=== PATIENT | male | born 1975 | race Two or more races ===

== ENCOUNTER 2024-09-12 12:54 | Emergency (ER) | payer SELFPAY ==
--- NOTE | ~2024-09-12 | XR_ITS ---
EXAMINATION: XR ABDOMEN KUB CLINICAL INDICATION: Pain, question constipation COMPARISON: None available. TECHNIQUE: AP view of the abdomen. FINDINGS: The bowel gas pattern is normal with no evidence of ileus or obstruction. Moderate stool burden throughout the colon. The bones are unremarkable. XR/XR KUB IMPRESSION: Moderate stool burden throughout the colon. Electronically signed by: Gus Casillas MD 09/12/2024 09:22 PM EDT RP
[2024-09-12 12:57] VITALS: BP 105/57; PULSE 83; RESP 20; TEMP 37.1; O2SAT 98; BMI 27.5
--- NOTE | 2024-09-12 12:59 | ED.ABDPAIN ---
HPI - Abdominal Pain General Chief Complaint: Abdominal Pain Stated Complaint: stomach ache 1xweek Time Seen by Provider: 09/12/24 19:26 Source: patient, RN notes reviewed and old records reviewed Mode of arrival: ambulatory Limitations: no limitations History of Present Illness ED Provider: Mark HPI narrative: 49-year-old male who denies any past medical history presents for evaluation abdominal pain. Patient endorses left lower abdominal pain which started about 1 week ago. He denies any fevers, chills, nausea vomiting, diarrhea. He reports his last bowel movement was this morning He denies any black or bloody stool The patient denies any history abdominal surgeries. He is not taking any medication help alleviate his symptoms Denies any urinary complaints Related Data Previous Rx's ?Medication ?Instructions ?Recorded magnesium citrate 300 ml PO DAILY #296 mL 09/12/24 polyethylene glycol 3350 17 17 g PO DAILY PRN constipation 09/12/24 gram/dose oral powder (Miralax) #238 grams Allergies Allergy/AdvReac Type Severity Reaction Status Date / Time No Known Allergies Allergy Verified 09/12/24 13:00 Review of Systems Constitutional: Denies body ache(s), Denies chills and Denies fever(s) Cardiovascular: Denies chest pain Gastrointestinal: Reports abdominal pain, Denies hematochezia, Reports constipation, Denies nausea and Denies vomiting Musculoskeletal: Denies back pain Skin/Breast: Denies rash PMFSH Past Medical History Medical History (Updated 09/12/24 @ 20:45 by Constantin Flores) Kidney stones Social History Social History Smoked in Last 30 Days: Yes Use of substances other than those prescribed or required for medical reasons: No Advance Directives: No Advance Directives Information Provided: No Do you have a plan to hurt others: No Plan Physical Exam ED Vital Signs: Vital Signs - 24 hr 09/12/24 12:57 09/12/24 19:06 Temperature 98.8 F 98.7 F Pulse Rate 83 57 Respiratory Rate 20 16 Blood Pressure 105/57 L 95/61 Pulse Oximetry 98 100 Oxygen Delivery Method Room Air BMI result Body Mass Index 27.5 Const General: healthy appearing, comfortable, no acute distress, alert and awake Nutritional Appearance: well nourished Orientation/consciousness: patient oriented x3 HENMT Head: Yes normocephalic and Yes atraumatic Eyes Eyelids: Yes eyelids normal Conjunctivae: conjunctivae normal Sclerae: sclerae normal Corneas: corneas normal Pupils: Equal, round and reactive pupils present EOM: EOMs intact bilaterally Neck Neck: Yes full ROM Resp Effort & Inspection: normal respiratory effort, able to speak in complete sentences and not labored Cardio Rate: regular rate Rhythm: regular rhythm GI Inspection: No distended Palpation (GI): Soft to palpation, not firm, Tenderness to palpation present (GI) in the LLQ; not in the RLQ, not in the LUQ, not in the RUQ, obturator sign negative and psoas sign negative, no guarding and not rigid Skin General skin exam: elasticity normal Neuro General: patient oriented x3 Cranial nerves: Yes Equal, round and reactive pupils present and Yes Bilaterally intact EOM present Cognition (Neuro): normal cognition Extrem Other: Moving all extremities well without any obvious deformities Course Course Course Narrative: This is an RME: Additional HPI, ROS, PE not included below will be deferred to primary provider. RME assessment and note performed by: Jayleen Valero PA-C This is a [id number]-male who presents to the ER with a complaint of abdominal pain x 1 week. Reporting no bloody or black stool. No hx of similar symptoms. Hx of gallstones. Abd is soft, with mild ttp overlying the left lower quadrant. Plan: Labs, UA, further ER eval needed Medical Decision Making Medical Decision Making MDM Narrative: 41-year-old male presents for evaluation abdominal pain x1 week. He has no fever, no nausea vomiting. He endorses fever bowel movements but did have a bowel movement this morning. His abdomen is soft, minimally tender to palpation, no rebound or guarding. He has no fever, no leukocytosis, I have a low suspicion for infectious process. The patient has no bloody stool to suggest diverticulitis, colitis. His KUB shows moderate constipation/stool burden. We will discharge the patient is symptomatic care for constipation. Differential Diagnosis Differential Diagnoses: The differential diagnosis associated with the presentation includes Abdominal pain Constipation Bowel obstruction less likely Colitis Diverticulitis Lab Data MDM Lab Attestation statement: I reviewed the patient's lab results. No leukocytosis, no anemia. Normal platelet count. No significant electrolyte abnormalities. Patient has a slight elevation of BUN and creatinine to 18 and 1.42 respectively. This may be reflective of some degree of dehydration with the patient is able to tolerate oral intake. This ratio was not consistent with upper GI bleed 09/12/24 14:28 09/12/24 14:28 Labs: Lab Results 09/12/24 09/12/24 Range/Units 14:28 19:19 WBC 10.0 (4.8-10.8) X10*3/uL RBC 4.70 (4.60-5.80) X10*6/uL Hgb 15.1 (14.0-18.0) g/dl Hct 42.8 (42.0-52.0) % MCV 91.1 (80.0-98.0) fL MCH 32.1 (27.0-33.0) pg MCHC 35.3 (31.0-36.0) g/dl RDW 12.6 (11.0-16.0) % Plt Count 271 (160-400) X10*3/uL MPV 8.9 L (9.4-12.4) fL Immature Gran % (Auto) 0.3 (0.0-0.4) % Neut % (Auto) 67.7 (45-73) % Lymph % (Auto) 22.4 (20-40) % [place] % (Auto) 7.6 (2-11) % Eos % (Auto) 1.6 (0-4) % Baso % (Auto) 0.4 (0-2) % Lymph # (Auto) 2.3 (1.2-4.9) X10*3/uL [place] # (Auto) 0.8 (0.1-1.2) X10*3/uL Eos # (Auto) 0.2 (0.0-0.4) X10*3/uL Baso # (Auto) 0.0 (0.0-0.2) X10*3/uL Abs Immat Gran (auto) 0.03 (0.00-0.03) X10*3/uL Absolute Neuts (auto) 6.8 (2.0-8.3) x10*3/uL Absolute Nucleated RBC 0.000 (0.0-0.012) X10*3/uL Nucleated RBC % (auto) 0.0 (0.0-0.2) /100WBC Sodium 139 (135-145) mmol/L Potassium 4.0 (3.3-5.1) mmol/L Chloride 107 (96-108) mmol/L Carbon Dioxide 25 (22-29) mmol/L Anion Gap 11 L (12-20) BUN 18 H (9-16) mg/dL Creatinine 1.42 H (0.5-1.4) mg/dL Estim Creat Clear Calc 60.1 Estimated GFR 53 Random Glucose 99 (60-115) mg/dL Calcium 9.3 (8.4-10.2) mg/dL Total Bilirubin 0.2 (0.0-1.0) mg/dL AST 16 (5-37) U/L ALT 17 (0-40) U/L Alkaline Phosphatase 58 (39-117) U/L Total Protein 6.9 (6.5-8.0) g/dL Albumin 4.0 (3.5-5.0) g/dL Lipase 35 (8-78) U/L Urine Color Yellow Urine Appearance Clear Urine pH 6.0 (5.0-9.0) Ur Specific [place] 1.020 (1.005-1.025) Urine Protein Negative (Neg-Trace) mg/dL Urine Glucose (UA) Negative (Negative) mg/dL Urine Ketones Negative (Negative) mg/dL Urine Blood Negative (Negative) Urine Nitrite Negative (Negative) Ur Leukocyte Esterase Negative (Negative) Independent Interpretation I performed an independent interpretation of an: Plain X-Ray (Moderate stool burden, nonobstructive bowel gas pattern) Discharge Plan Discharge Clinical Impression: Abdominal pain, Acute constipation Patient Disposition: Home, Self-Care Instructions: Constipation (ED), High Fiber Diet (ED) Additional Instructions: Your x-ray shows a significant amount of constipation. You should increase fluid intake in your diet. Increase fiber intake in your diet. Take MiraLax every night for the next 2 weeks. Take magnesium citrate, drink the entire bottle tomorrow to help facilitate bowel movements This should help with your abdominal pain. Follow-up with your primary doctor, return for new or worsening symptoms Prescriptions: New polyethylene glycol 3350 [Miralax] 17 gram/dose powder 17 g PO DAILY PRN (Reason: constipation) Qty: 238 0RF magnesium citrate Solution 300 ml PO DAILY Qty: 296 0RF Print Language: Filipino
[2024-09-12 14:32] LABS: Basophils Percent Auto 0.4 % (0-2); Eosinophils Absolute Auto 0.2 X10*3/uL (0.0-0.4); Eosinophils Percent Auto 1.6 % (0-4); Hematocrit 42.8 % (42.0-52.0); Hemoglobin 15.1 g/dl (14.0-18.0); Imm Gran Abs Auto 0.03 X10*3/uL (0.00-0.03); Imm Gran Pct Auto 0.3 % (0.0-0.4); Lymphocytes Absolute Auto 2.3 X10*3/uL (1.2-4.9); Lymphocytes Percent Auto 22.4 % (20-40); MANUAL DIFF FLAG NO; Mean Corpuscular HGB Conc 35.3 g/dl (31.0-36.0); Mean Corpuscular Hemoglobin 32.1 pg (27.0-33.0); Mean Corpuscular Volume 91.1 fL (80.0-98.0); Mean Platelet Volume 8.9 fL (9.4-12.4); Monocytes Absolute Auto 0.8 X10*3/uL (0.1-1.2); Monocytes Percent Auto 7.6 % (2-11); Neutrophils Absolute Auto 6.8 x10*3/uL (2.0-8.3); Neutrophils Percent Auto 67.7 % (45-73); Platelet Count 271 X10*3/uL (160-400); Red Cell Distribution Width 12.6 % (11.0-16.0)
[2024-09-12 14:50] LABS: Alanine Aminotransferase 17 U/L (0-40); Alkaline Phosphatase 58 U/L (39-117); Anion Gap 11 (12-20); Aspartate Amino Transferase 16 U/L (5-37); Bilirubin Total 0.2 mg/dL (0.0-1.0); Blood Urea Nitrogen 18 mg/dL (9-16); Calcium 9.3 mg/dL (8.4-10.2); Carbon Dioxide 25 mmol/L (22-29); Chloride 107 mmol/L (96-108); Creatinine Clr Calc Pharmacy 60.1; Estimated Glomerular Filt Rate 53; Glucose Random 99 mg/dL (60-115); Lipase 35 U/L (8-78); Sodium 139 mmol/L (135-145); Total Protein 6.9 g/dL (6.5-8.0)
[2024-09-12 19:06] VITALS: BP 95/61; PULSE 57; RESP 16; TEMP 37.1; O2SAT 100
--- NOTE | 2024-09-12 19:19 | PC.NURSE ---
patient a&ox3, vitals stable, pt has RLQ abd pain- 8/10, pt awaiting provider, urine obtained/labs previously obtained, call branham within reach, will continue to monitor.
[2024-09-12 19:27] LABS: Appearance Urine Clear; Color Urine Yellow; Glucose Urine UA Negative (Negative); Leukocyte Esterase Urine Negative (Negative); Nitrite Urine Negative (Negative); Urine Blood Negative (Negative); Urine Ketones Negative (Negative); Urine Protein Negative (Neg-Trace)
[2024-09-12 20:58] VITALS: BP 103/58; PULSE 72; RESP 16; TEMP 36.8; O2SAT 99
== END 2024-09-12 20:59 | disposition home or self-care (01) ==
PROVIDERS: Physician Assistant Medical; Emergency Provider Student in an Organized Health Care Education/Training Program
DX: K59.00 Constipation, unspecified (principal); R10.32 Left lower quadrant pain; Z79.899 Other long term (current) drug therapy
CPT/HCPCS: 36415; 74018; 80053; 81003; 83690; 85025; 99283; 99284

== ENCOUNTER 2025-04-10 14:24 | Outpatient (REF) | payer OTHER, SELFPAY ==
--- OUTSIDE RECORDS SUMMARY | 2025-04-10 14:36 | XMS_ITS | Encounter Summary ---
Author Organization [employer] Address [address] [place] [address] Care Team Providers Care Manager Insurance Name Role Phone Sylvia Bains MD Primary Care Provider [phone] Reason for Visit * Reason Comments Abdominal Pain Vomiting Encounter Details Date Type Department Care Team ([facility] Contact Info) Description 04/10/2025 2:40 PM EDT Office Visit [facility] [address] [place] [address] Epigastric pain (Primary Dx); Viral URI Social History Tobacco Use Types Packs/Day Years Used Date Smoking Tobacco: Every Day Cigarettes 0.5 30 Smokeless Tobacco: Never Comments:1/2 a day x 33 year s Alcohol Use Standard Drinks/Week Comments Yes 0 (1 standard drink = 0.6 oz pur e alcohol) socially Alcohol Answer Date Recorded Q1: How often do you have a drink containing alc ohol? 2 10/10/2024 Q2: How many drinks containi ng alcohol do you have on a typical day when you are drinking? 1 10/10/2024 Q3: How often do you have six or more drinks on one occasion? 1 10/10/2024 Sex and Gender Information Value Date Recorded Sex Assigned at Male 12/22/2022 11:20 AM EST Legal Sex Male 11:47 AM EST Gender Identity Male 12/22/2022 11:20 AM EST Sexual Orientation Straight 12/22/2022 11 :20 AM EST documented as of this encounter Last Filed Vital Signs Vital Sign Reading Time Taken Comments Blood Pressure 105/63 04/10/2025 1:34 PM EDT Pulse 71 04/10/2025 1:34 PM EDT Temperature 37.1 ??C (98.8 ??F) 04/10/2025 1:34 PM ED T Respiratory Rate 17 04/10/2025 1:34 PM EDT Oxygen Saturation 98% 04/10/2025 1:34 PM EDT Inhaled Oxygen Concentration - - Weight 57.4 kg (126 lb 9.6 oz) 04/10/2025 1:34 P M EDT Height - - Body Mass Index - - documented in this encounter Plan of Treatment Upcoming Encounters Date Type Department Care Team (Late st Contact Info) Description 06/16/2025 3:15 PM EDT Office Visit [facility] MEDICINE [address] [place] [address] Sylvia Bains MD [address] [place], [place] [phone] Scheduled Orders Name Type Priority Associated Diagnoses Orde r Schedule Lipase Lab Routine Epigastric pain Expected: 04/10/2025, Expires: 04/10/2026 Comprehensive Metabolic Panel Lab Routine Epigastric pain Expected: 04/10/2025 (Approximate), Expires: 04/10/2026 Helicobacter pylori??Antigen, EIA, Stool Lab Routine Epigastric pain Expected: 04/10/2025, Expires: 04/10/2026 HIV-1/2 Antigen and Antibodies, Fourth Generation, with Reflexes Lab Routine Epigastric pain Expected: 04/10/2025 (Approximate), Expires: 04/10/2026 Hepatitis C Antibody with Reflex to HCV, RNA, Quantitative, Real-Time PCR Lab Routine Epigastric pain Expected: 04/10/2025, Expires: 04/10/2026 Lipid Panel, Standard Lab Routine Epigastric pain Expected: 04/10/2025 (Approximate), Expires: 04/10/2026 documented as of this encounter Procedures Procedure Name Priority Date/Time Associated Diagnosis Comments POCT INFLUENZA B (ID NOW RAPID MOLECULAR) Routine 04/10/2025 1:52 PM EDT Viral URI POCT INFLUENZA A (ID NOW RAPID MOLECULAR) Routine 04/10/2025 1:52 PM EDT Viral URI POCT RAPID COVID ANTIGEN Routine 04/10/2025 1:52 PM EDT Viral URI documented in this encounter Results * Influenza B (ID NOW Rapid Molecular) (04/10/2025 1:52 PM EDT) [facility] Influenza B Negative Negative, Indeterminate [facility] Swab 04/10/2025 1:52 PM EDT Sylvia Bains MD POINT OF CARE TEST ENTER/EDIT ORDERABLES Final Result Performing Organization Address City/[facility]/ZIP Co de Phone Number [facility] [address] [place] [address] [phone] * Influenza A (ID NOW Rapid Molecular) (04/10/2025 1:52 PM EDT) [facility] Influenza A Negative Negative, Indeterminate [facility] Swab 04/10/2025 1:52 PM EDT Sylvia Bains MD POINT OF CARE TEST ENTER/EDIT ORDERABLES Final Result Performing Organization Address [facility] Co de Phone Number [facility] [address] [place] [phone] * POCT Rapid COVID Ag (04/10/2025 1:52 PM EDT) [facility] Rapid COVID Ag Negative [facility] Swab 04/10/2025 1:52 PM EDT Sylvia Bains MD POINT OF CARE TEST ENTER/EDIT ORDERABLES Final Result Performing Organization Address [facility] Co de Phone Number [facility] [address] [place] [address] [phone] documented in this encounter Visit Diagnoses Diagnosis Epigastric pain- Primary Abdominal pain, epigastric Viral URI Acute upper respiratory infections of unspecified site documented in this encounter Care Teams Manager Insurance Relationship Specialty Start Date End Date Sylvia Bains MD [address] [place] [phone] PCP - General Family Medicine 04/10/25 documented as of this encounter
--- OUTSIDE RECORDS SUMMARY | 2025-04-10 14:36 | XMS_ITS | Clinical Summary ---
Author Organization [employer] Address [address] [facility] 7[address] [place] [address] Care Team Providers Care Dependency Program Director Name Role Phone Sylvia Bains MD Primary Care Provider [phone] Allergies No known active allergies Medications Omeprazole 20 MG tablet delayed-relea seIndications :Epigastric pain Take 1 tablet (20 mg) by mouth 2 times daily. 90 tablet 1 10/10/20 24 Active [facility] Magnesium Citrate oral solution TAKE 300 ML ORALLY DAILY 09/13/20 24 Active GaviLAX 17 GM/SCOOP powder Take 17 g by mouth in the morning and 17 g at noon. 510 g 1 04/10/20 25 Active ondansetron (Zofran) 4 MG tablet Take 1 tablet (4 mg) by mouth every 8 (eight) hours if needed for nausea or vomiting for up to 7 days. 21 tablet 04/10/20 25 025 Active GaviLAX 17 GM/SCOOP powder DISSOLVE 17 G WITH LIQUID THEN TAKE ORALLY DAILY NEEDED FOR CONSTIPATION 09/13/20 24 025 Discontinued(R eorder (will not trigger notification to Pharmacy)) Active Problems No known active problems Encounters Date Type Department Care Team Description 04/10/2025 2:40 PM EDT Office Visit [facility] [address] [place] [address] Epigastric pain (Primary Dx); Viral URI 01/24/2025 Telephone [facility] [address] [place] [address] Max Sal MD from Last 3 Months Immunizations Name Administration Dates Next Due HepB-CpG 03/02/2023 MMR 03/02/2023 Pfizer Covid-19 Vaccine 12+ Bivalent 12/05/2022 Pneumococcal Polysaccharide PPSV23 02/16/2023 Tdap 03/16/2023,02/16/2023 Family History Medical History Relation Name Comments Stroke Father Stroke Paternal Grandfather Relation Name Status Comments Father Paternal Grandfather Social History Tobacco Use Types Packs/Day Years [...] Orientation Straight 12/22/2022 11 :20 AM EST Last Filed Vital Signs Vital Sign Reading [...] - - Body Mass Index - - Plan of Treatment Upcoming Encounters Date Type Department Care Team (Late st Contact Info) Description 04/10/2025 2:40 PM EDT Office Visit [facility] [address] [place] [phone] Epigastric pain (Primary Dx); Viral URI 06/16/2025 3:15 PM EDT Office Visit [facility] [address] [place] [address] Sylvia Bains MD [address] [place] [address] Health Maintenance Due Date Last Done Comments CT Colonography 1976 Colonoscopy 1976 Colorectal Cancer Screening 1976 Dental Oral Exam 1976 Dental Prophylaxis 1976 Dental X-Ray: Bitewings 1976 Dental X-Ray: Full Mouth 1976 Depression Screening 1976 FIT DNA/Cologuard 1976 FIT 1976 FOBT 1976 HIV Screening 1976 Lipid Panel 1976 SDOH Screening 1976 Sigmoidoscopy 1976 Family Planning (PISQ) 1991 Hepatitis C Screening 1994 Hepatitis B Vaccines (2 of 2 - CpG 2-dose series) 03/30/2023 03/02/2023 Pneumococcal Vaccine: Pediatrics (0 to 5 Years) and At-Risk Patients (6 to 49) Years) (2 of 2 - PCV) 02/17/2024 02/16/2023 COVID-19 Vaccine (2 - 2023-2 5 season) 2024 12/05/2022 Influenza Vaccine (#1) 2024 Alcohol/Substance Use Screening 10/10/2025 10/10/2024 Tobacco Screening 04/10/2026 04/10/2025 Zoster Vaccines (1 of 2) 2026 DTaP/Tdap/Td Vaccines (3 - T d or Tdap) 03/16/2033 03/16/2023, 02/16/2023 RSV Patients and Patients Aged 60 years or older (1 - 1-dose 75+ series) 2051 HIB Vaccines Aged Out No longer eligi ble based on patient's age to complete this topic HPV Vaccines Aged Out No longer eligi ble based on patient's age to complete this topic Hepatitis A Vaccines Aged Out No long er eligible based on patient's age to complete this topic IPV Vaccines Aged Out No longer eligi ble based on patient's age to complete this topic Meningococcal Vaccine Aged Out No oylanda nilesh eligible based on patient's age to complete this topic RSV under 20 months Aged Out No longe r eligible based on patient's age to complete this topic Rotavirus Vaccines Aged Out No longer eligible based on patient's age to complete this topic Procedures Procedure Name Priority Date/Time Associated Diagnosis Comments POCT INFLUENZA B (ID NOW RAPID MOLECULAR) Routine 04/10/2025 1:52 PM EDT Viral URI POCT INFLUENZA A (ID NOW RAPID MOLECULAR) Routine 04/10/2025 1:52 PM EDT Viral URI POCT RAPID COVID ANTIGEN Routine 04/10/2025 1:52 PM EDT Viral URI from Last 3 Months Results * Influenza B (ID NOW Rapid Molecular) (04/10/2025 1:52 PM EDT) Influenza B Negative Negative, Indeterminate [facility] Swab 04/10/2025 1:52 PM EDT Sylvia Bains MD POINT OF CARE TEST ENTER/EDIT ORDERABLES Final Result Performing Organization Address [facility] Co de Phone Number [facility] [address] [place] [phone] * Influenza A (ID NOW Rapid Molecular) (04/10/2025 1:52 PM EDT) Influenza A Negative Negative, Indeterminate [facility] Swab 04/10/2025 1:52 PM EDT Sylvia Banis MD POINT OF CARE TEST ENTER/EDIT ORDERABLES Final Result Performing Organization Address [facility] Co de Phone Number [facility] [address] [place] [phone] * POCT Rapid COVID Ag (04/10/2025 1:52 PM EDT) Rapid COVID Ag Negative [facility] Swab 04/10/2025 1:52 PM EDT Sylvia Bains MD POINT OF CARE TEST ENTER/EDIT ORDERABLES Final Result [facility] [address] [place] [address] [phone] from Last 3 Months Insurance [place] - [place] FULL (MEDICAID) Care Teams Dependency Program Director Relationship Specialty Start Date End Date Sylvia Bains MD [address] [place] [phone] PCP - General Family Medicine 04/10/25
--- OUTSIDE RECORDS SUMMARY | 2025-04-10 14:36 | XMS_ITS | Encounter Summary ---
Author Organization [employer] Address [address] [place] [address] Care Team Providers Care Dupligraph Operator Name Role Phone Sylvia Bains MD Primary Care Provider [phone] Encounter Details Date Type Department Care Team ([facility] Contact Info) Description 01/30/2023 Abstract [facility] AD[facility] [address] [place] [address] Gerhard Bell DDS [address] [place] [address] Social History Tobacco Use Types Packs/Day Years Used Date Smoking Tobacco: Every Day Cigarettes 0.5 30 Smokeless Tobacco: Never Alcohol Use Standard Drinks/Week Comments Yes 0 (1 standard drink = 0.6 oz pur e alcohol) socially Sex and Gender Information Value Date Recorded Sex Assigned at Male 12/22/2022 11:20 AM EST Legal Sex Male 11:47 AM EST Gender Identity Male 12/22/2022 11:20 AM EST Sexual Orientation Straight 12/22/2022 11 :20 AM EST COVID-19 Exposure Response Date Recorded In the last 10 days, have yo u been in contact with someone who was confirmed or suspected to have Coronavirus/COVID-19? No / Unsure 01/26/2023 9:30 AM EST documented as of this encounter Plan of Treatment Upcoming Encounters Date Type Department Care Team ([facility] Contact Info) Description 04/10/2025 2:40 PM EDT Office Visit [facility] [address] [place], [place] [phone] Epigastric pain (Primary Dx); Viral URI 06/16/2025 3:15 PM EDT Office Visit [facility] MEDICINE [address] [place] [address] Sylvia Bains MD [address] [place], [place] [phone] documented as of this encounter Visit Diagnoses Not on filedocumented in this encounter Care Teams Dupligraph Operator Relationship Specialty Start Date End Date Sylvia Bains MD [address] [place], [place] [phone] PCP - General Family Medicine 04/10/25 documented as of this encounter
--- OUTSIDE RECORDS SUMMARY | 2025-04-10 14:36 | XMS_ITS | Encounter Summary ---
Author Organization [employer] Address [address] [place] [address] Care Team Providers Care Cat Wagon Operator Name Role Phone Sylvia Bains MD Primary Care Provider [phone] Encounter Details Date Type Department Care Team (Late Contact Info) Description 10/10/2024 Orders Only [facility] MED & PEDS [address] [place], [place] [phone] Magen Disla MD [address] [place] [address] Epigastric pain Social History Tobacco Use Types Packs/Day Years [...] Encounters Date Type Department Care Team (Late Contact Info) Description 04/10/2025 2:40 PM EDT Office Visit [facility] [address] [place] [address] Epigastric pain (Primary Dx); Viral URI 06/16/2025 3:15 PM EDT Office Visit [facility] MEDICINE [address] [place], [place] [phone] Sylvia Bains MD [address] [place] [phone] documented as of this encounter Visit Diagnoses Diagnosis Epigastric pain Abdominal pain, epigastric Epigastric pain- Primary Abdominal pain, epigastric Viral URI Acute upper respiratory infections of unspecified site documented in this encounter Care Teams Cat Wagon Operator Relationship Specialty Start Date End Date Sylvia Bains MD [address] [place] [phone] PCP - General Family Medicine 04/10/25 documented as of this encounter
[2025-04-10 16:44] LABS: Alanine Aminotransferase 46 U/L (0-40); Albumin Level 4.3 g/dL (3.5-5.0); Anion Gap 11 (12-20); Aspartate Amino Transferase 23 U/L (5-37); Bilirubin Total 0.3 mg/dL (0.0-1.0); Blood Urea Nitrogen 17 mg/dL (9-16); Calcium 9.2 mg/dL (8.4-10.2); Carbon Dioxide 29 mmol/L (22-29); Chloride 103 mmol/L (96-108); Cholesterol 154 mg/dL (<200); Estimated Glomerular Filt Rate > 60; Glucose Random 100 mg/dL (60-115); HDL Cholesterol 61 mg/dL (>40); LDL Cholesterol Calculated 73 mg/dL (<100); Lipase 38 U/L (8-78); Sodium 139 mmol/L (135-145); Total Protein 7.1 g/dL (6.5-8.0); Triglycerides 103 mg/dL (<150)
[2025-04-10 16:48] LABS: Alkaline Phosphatase 58 U/L (39-117)
[2025-04-11 07:51] LABS: HIV AB/AG Nonreactive (Nonreactive); HIV Num 1 0.07 S/CO (0.00-0.99); ~HepC Num1 0.15 S/CO (0.00-0.79); ~Hepatitis C Antibody Nonreactive (Nonreactive)
== END 2025-04-10 14:25 | disposition home or self-care (01) ==
LOC: HO.HHCL 14:24
PROVIDERS: Visit Provider General Practice
DX: R10.13 Epigastric pain (principal); Z13.6 Encounter for screening for cardiovascular disorders
CPT/HCPCS: 36415; 80053; 80061; 83690; 86803; 87389

== ENCOUNTER 2025-06-16 15:40 | Outpatient (REF) | payer OTHER, SELFPAY ==
[2025-06-16 17:25] LABS: MANUAL DIFF FLAG NO
[2025-06-16 17:31] LABS: Hematocrit 41.4 % (42.0-52.0); Hemoglobin 14.4 g/dl (14.0-18.0); Imm Gran Abs Auto 0.02 X10*3/uL (0.00-0.03); Imm Gran Pct Auto 0.3 % (0.0-0.4); Lymphocytes Absolute Auto 2.1 X10*3/uL (1.2-4.9); Mean Corpuscular HGB Conc 34.8 g/dl (31.0-36.0); Mean Corpuscular Hemoglobin 30.8 pg (27.0-33.0); Mean Corpuscular Volume 88.7 fL (80.0-98.0); NRBC Abs Auto 0.000 X10*3/uL (0.0-0.012); NRBC Pct Auto 0.0 /100WBC (0.0-0.2); Platelet Count 230 X10*3/uL (160-400); Red Blood Count 4.67 X10*6/uL (4.60-5.80); White Blood Count 7.4 X10*3/uL (4.8-10.8)
[2025-06-16 17:36] LABS: Hemoglobin A1C 137.3422 umol/L; Total Hemoglobin (HGBA1C) 3720.0804 umol/L
== END 2025-06-16 15:41 | disposition home or self-care (01) ==
LOC: HO.HHCL 15:40
PROVIDERS: PCP General Practice; Visit Provider General Practice
DX: R10.13 Epigastric pain (principal)
CPT/HCPCS: 36415; 83036; 85025

== ENCOUNTER 2025-08-07 09:44 | Outpatient (REF) | payer OTHER, SELFPAY ==
--- OUTSIDE RECORDS SUMMARY | 2025-08-07 11:11 | XMS_ITS | Clinical Summary ---
Author Organization [employer] Address [address] [facility] 7t [place] [address] Care Team Providers Care Compounding Pharmacy Technician Name Role Phone Sylvia Bains MD Primary Care Provider [phone] Allergies No known active allergies Medications [facility] Magnesium Citrate oral solution TAKE 300 ML ORALLY DAILY 4 Active famotidine (Pepcid) 40 MG tabletIndicatio ns:Epigastric pain Take 1 tablet (40 mg) by mouth 2 times daily. 60 tablet 11 5 04/17/20 26 Active polyethylene glycol, PEG, 3350 (Glycolax) 17 GM/SCOOP powder TAKE 17 GRAMS IN 8 OUNCES OF WATER AND TAKE TWICE DAILY IN THE MORNING AND AT NOON 510 g 5 Active nicotine (Nicoderm, Step 3) 7 MG/24HR patch APPLY 1 PATCH TOPICALLY TO THE SKIN IN THE MORNING *DO NOT SMOKE WHILE USING PATCH* 30 patch 1 5 Active Omeprazole 20 MG tablet delayed-release Take 1 tablet by mouth 2 times daily. 5 Active ondansetron (Zofran) 4 MG tablet TAKE 1 TABLET BY MOUTH EVERY 8 HOURS NEEDED FOR NAUSEA AND VOMITING FOR UP TO 7 DAYS 5 Active melatonin 5 MG tablet Take 1 tablet (5 mg) by mouth if needed at bedtime (insomnia). 90 tablet 1 5 Active clotrimazole (Lotrimin) 1 % cream Apply topically 2 times daily for 28 days. 30 g 5 5 07/14/20 25 Active Problems Problem Noted Date Diagnosed Date Tobacco use 06/18/2025 Onychomycosis 06/18/2025 Red eyes 06/18/2025 Open fracture of tooth with routine healing 05/31 Slow transit constipation 04/10/2025 Assessment & Plan (04/13/2025 6:35 AM EDT): Recommend Miralax cleanout x 2-4 weeks minimum. This is long-standing constipation and is unlikely to be relieved quickly He should call GI to make his appointment for colonscopy Increase fluid and fiber intake Epigastric pain 04/10/2025 Encounters Date Type Department Care Team Description 06/16/2025 3:15 PM EDT Office Visit [facility] [address] [place] [address] [phone] Sylvia Bains MD Epigastric pain (Primary Dx); Slow transit constipation; Tobacco use; Primary insomnia; Onychomycosis; Red eyes; Open fracture of tooth with routine healing 06/16/2025 Travel 06/15/[address] [facility] [address] [place] [address] [phone] Sylvia Bains MD Chart Prep 06/09/[address] [facility] [address] [place] [address] [phone] Sylvia Bains MD 06/09/[address] [facility] [address] [place] [address] [phone] Magen Disla MD Epigastric pain 05/25/[address] [facility] [address] [place] [address] [phone] Sylvia Bains MD 05/17/[address] [facility] [address] [place] [address] [phone] Sylvia Bains MD Letter for School/Work from Last 3 Months Immunizations Immunization Administration Dates Next Due HepB-CpG 03/02/2023 MMR 03/02/2023 Pfizer Covid-19 Vaccine 12+ Bivalent 12/05/2022 Pneumococcal Polysaccharide PPSV23 02/16/2023 Tdap 03/16/2023,02/16/2023 Family History Medical History Relation Name Comments Stroke Father Stroke Paternal Grandfather Relation Name Status Comments Father Paternal Grandfather Social History Tobacco Use Types Packs/Day Years Used Date Smoking Tobacco: Every Day Cigarettes 0.5 30 Smokeless Tobacco: Never Tobacco Cessation:Ready to Q uit: Not Asked; Counseling Given: Not Answered Comments:1/2 a day x 33 years Alcohol Use Standard Drinks/Week Comments Yes 0 [...] more drinks on one occasion? 1 10/10/2024 Depression Answer Date Recorded Patient Health Questionnaire-9 Score 0 06/16/2025 Patient Health Questionnaire-9 Score 0 06/16/2025 Last PHQ-9: Questionnaire Data Not on file 0 06/16/2025 Housing Stability Answer Date Recorded What is your housing situation today? I have stan allie 06/16/[address] you li ve. Do you have problems with any of the following? None of the above 06/16/2025 Food Insecurity Answer Date Recorded Within the past 12 months, y ou worried that your food would run out before you got money to buy more: Never True 06/16/2025 Within the past 12 months,th e food you bought just didn't last and you didn't have enough money to get more: Never True Transportation Answer Date Recorded In the past 12 months, has l ack of transportation kept you from medical appts, meetings, work or from getting things needed for daily living? No 06/16/2025 Utilities Answer Date Recorded In the past 12 months, has t he electric, gas, oil or water company threatened to shut off services in your home? No 06/16/2025 Depression Answer Date Recorded Patient Health Questionnaire-2 Score 0 06/16/2025 Internet Access Answer Date Recorded Internet Access Q1 Yes 06/16/2025 Internet Access Q2 Not on file 06/16/2025 Sex and Gender Information Value Date Recorded Sex Assigned at Male 12/22/2022 11:20 AM EST Legal Sex Male 11:47 AM EST Gender Identity Male 12/22/2022 11:20 AM EST Sexual Orientation Straight 12/22/2022 11 :20 AM EST Last Filed Vital Signs Vital Sign Reading Time Taken Comments Blood Pressure 102/80 06/16/2025 2:50 PM EDT Pulse 84 06/16/2025 2:50 PM EDT Temperature 37.2 C (98.9 F) 06/16/2025 2:50 PM EDT Respiratory Rate 18 06/16/2025 2:50 PM EDT Oxygen Saturation 98% 04/10/2025 1:34 PM EDT Inhaled Oxygen Concentration - - Weight 58.8 kg (129 lb 9.6 oz) 06/16/2025 2:50 P M EDT Height 165.1 cm (5' 5 ) 06/16/2025 2:50 PM EDT Body Mass Index 21.57 06/16/2025 2:50 PM EDT Plan of Treatment Health Maintenance Due Date Last Done Comments CT Colonography 1976 Colonoscopy 1976 Colorectal Cancer Screening 1976 Dental Oral Exam 1976 Dental Prophylaxis 1976 Dental X-Ray: Bitewings 1976 Dental X-Ray: Full Mouth 1976 FIT DNA/Cologuard 1976 FIT 1976 FOBT 1976 Sigmoidoscopy 1976 Family Planning (PISQ) 1991 Hepatitis B Vaccines (2 of 2 - CpG 2-dose series) 03/30/2023 03/02/2023 Pneumococcal Vaccine: Pediatrics (0 to 5 Years) and At-Risk Patients (6 to 49) Years (2 of 2 - PCV) 02/17/2024 02/16/2023 COVID-19 Vaccine (2 - 2024-2 6 season) 2025 12/05/2022 Influenza Vaccine (#1) 2025 Alcohol/Substance Use Screening 06/16/2026 06/16/2025 Depression Screening 06/16/2026 06/16/2025, 06/16/2025 Disability Screening 06/16/2026 06/16/2025 SDOH Screening 06/16/2026 06/16/2025 Tobacco Screening 06/16/2026 06/16/2025 Zoster Vaccines (1 of 2) 2026 Lipid Panel 04/10/2030 04/10/2025 DTaP/Tdap/Td Vaccines (3 - T d or Tdap) 03/16/2033 03/16/2023, 02/16/2023 RSV Patients and Patients Aged 60 years or older (1 - 1-dose 75+ series) 2051 HIV Screening Completed 04/10/2025 Hepatitis C Screening Completed 04/10/2025 HIB Vaccines Aged Out No longer eligi [...] patient's age to complete this topic Meningococcal B Vaccine Aged Out No l onger eligible based on patient's age to complete this topic Meningococcal Vaccine Aged Out No yolanda nilesh eligible based on patient's age to complete this topic RSV under 20 months Aged Out No longe r eligible based on patient's age to complete this topic Rotavirus Vaccines Aged Out No longer eligible based on patient's age to complete this topic Procedures Procedure Name Priority Date/Time Associated Diagnosis Comments CBC WITH AUTO DIFFERENTIAL Routine 06/16/2025 3:43 PM EDT Epigastric pain HEMOGLOBIN A1C Routine 06/16/2025 3:43 PM EDT Epigastric pain HEPATITIS C AB W/REFL TO HCV RNA, QN, PCR Routine 04/10/2025 2:27 PM EDT Epigastric pain HIV 1/2 ANTIGEN/ANTIBODY, FOURTH GENERATION W/RFL Routine 04/10/2025 2:27 PM EDT Epigastric pain LIPID PANEL, STANDARD Routine 04/10/2025 2:27 PM EDT Epigastric pain from Last 3 Months or Most Recently Relevant to Health Maintenance Results * (ABNORMAL) CBC auto differential (06/16/2025 3:43 PM EDT) White Blood Count 7.4 4.8 - 10.8 X10*3/uL [facility] Red Blood Count 4.67 4.60 - 5.80 X10*6/uL [facility] Hemoglobin 14.4 14.0 - 18.0 g/dl [facility] Hematocrit 41.4(L) 42.0 - 52.0 % [facility] Mean Corpuscular Volume 88.7 80.0 - 98.0 fL [facility] Mean Corpuscular Hemoglobin 30.8 27.0 - 33.0 pg [facility] Mean Corpuscular HGB Conc 34.8 31.0 - 36.0 g/dl [facility] Red Cell Distribution Width 12.7 11.0 - 16.0 % [facility] Platelet Count 230 160 - 400 X10*3/uL [facility] Mean Platelet Volume 9.9 9.4 - 12.4 fL [facility] Neutrophils Percent Auto 60.9 45 - 73 % [facility] Imm Gran Pct Auto 0.3 0.0 - 0.4 % [facility] Lymphocytes Percent Auto 28.8 20 - 40 % [facility] Monocytes Percent Auto 8.5 2 - 11 % [facility] Eosinophils Percent Auto 1.2 0 - 4 % [facility] Basophils Percent Auto 0.3 0 - 2 % [facility] NRBC Pct Auto 0.0 0.0 - 0.2 /100WBC [facility] Neutrophils Absolute Auto 4.5 2.0 - 8.3 x10*3/uL [facility] Imm Gran Abs Auto 0.02 0.00 - 0.03 X10*3/uL [facility] Lymphocytes Absolute Auto 2.1 1.2 - 4.9 X10*3/uL [facility] Monocytes Absolute Auto 0.6 0.1 - 1.2 X10*3/uL [facility] Eosinophils Absolute Auto 0.1 0.0 - 0.4 X10*3/uL [facility] Basophils Absolute Auto 0.0 0.0 - 0.2 X10*3/uL [facility] NRBC Abs Auto 0.000 0.0 - 0.012 X10*3/uL [facility] Blood Venous blood specimen / Unknown 06/16/2025 3:43 PM EDT 06/16/2025 5:21 PM EDT Sylvia Bains MD LAB BLOOD ORDERABLES Final Res ult Performing Organization Address [facility] Co de Phone Number [facility] [address] [place] [address] [phone] * Hemoglobin A1c (06/16/2025 3:43 PM EDT) Hemoglobin A1c 5.5 <6.0 % [facility] Comment:Hemoglobin A1C Refer ence Range Adults: 4.8 - 6.0 % Non diabetic: < 6.0 % Goal: < 7.0 %Additional Action Suggested: > 8.0 %Note: Hemoglobin A1c results are invalid for patients with abnormal amounts of HbF. Blood transfusions may impact the HbA1c concentration in the patient sample. Estimated Average Glucose 111 mg/dL [facility] Comment:eAG = Estimated ave rage glucose which is %A1C expressed asaverage glucose, using the formula of the [id number] Glucose study (ADAG), Diabetes Care, Vol.31,#8,2007 Blood Venous blood specimen / Unknown 06/16/2025 3:43 PM EDT 06/16/2025 5:21 PM EDT Sylvia Bains MD LAB BLOOD ORDERABLES Final Res ult Performing Organization Address [facility] Co de Phone Number [facility] [address] [place] [address] [phone] * Hepatitis C Antibody with Reflex to HCV, RNA, Quantitative, Real-Time PCR (04/10/2025 2:27 PM EDT) Hepatitis C Antibody Nonreactive Nonreactive [facility] Comment:Antibodies to HCV no t detected; does not exclude early acuteHCV infection. Blood Venous blood specimen / Unknown 04/10/2025 2:27 PM EDT 04/10/2025 4:04 PM EDT us Sylvia Bains MD LAB BLOOD ORDERABLES Final Res ult Performing Organization Address [facility]/ZIP Co de Phone Number [facility] [address] [place] [address] [phone] * HIV-1/2 Antigen and Antibodies, Fourth Generation, with Reflexes (04/10/2025 2:27 PM EDT) HIV AB/AG Nonreactive Nonreactive [facility] Comment:HIV-1 p24 Ag and/or HIV-1/HIV-2 Ab not detected.A test result that is nonreactive does not exclude thepossibility of exposure to or infection with HIV-1 and/orHIV-2. Nonreactive results in this assay for individualswith prior exposure to HIV-1 and/or HIV-2 may be due toantigen and antibody levels that are below the limit ofdetection of this assay.The [employer] HIV Ag/Ab Combo assay result andsupplemental assay results should be interpreted inconjunction with the patient's clinical presentation,history and other laboratory results. If the results areinconsistent with clinical evidence, additional testing issuggested to confirm the result. Blood Venous blood specimen / Unknown 04/10/2025 2:27 PM EDT 04/10/2025 4:04 PM EDT us Sylvia Bains MD LAB BLOOD ORDERABLES Final Res ult Performing Organization Address [facility]/ZIP Co de Phone Number [facility] [address] [place] [address] [phone] * Lipid Panel, Standard (04/10/2025 2:27 PM EDT) Triglycerides 103 <150 mg/dL [facility] Comment:Desirable Triglyceri de: less than 150 mg/dLBorderline High Triglyceride 150-199 mg/dLHigh Triglyceride: 200-499 mg/dLVery High Triglyceride: greater than or equal to 5OO mg/dL Cholesterol 154 <200 mg/dL [facility] Comment:Desirable Cholestero l: less than 200 mg/dLBorderline High Cholesterol: 200-239 mg/dLHigh Cholesterol: greater than 239 mg/dL LDL Cholesterol Calculated 73 <100 mg/dL [facility] Comment:Desirable LDL: less than 100 mg/dLNear Optimal/Above Optimal LDL: 110- 129 mg/dLBorderline High LDL: 130-159 mg/dLHigh LDL: 160-189 mg/dLVery High LDL: greater than or equal to 190 mg/dL HDL Cholesterol 61 >40 mg/dL [facility] Comment:Desirable HDL: great er than 40 mg/dL Note: This HDL assay may give artificially low results in patients with liver disease. Blood Venous blood specimen / Unknown 04/10/2025 2:27 PM EDT 04/10/2025 4:04 PM EDT us Sylvia Bains MD LAB BLOOD ORDERABLES Final Res ult [facility] [address] [place] [address] [phone] from Last 3 Months or Most Recently Relevant to Health Maintenance Insurance [facility] AD[facility] Care Teams Compounding Pharmacy Technician Relationship Specialty Start Date End Date Sylvia Bains MD [address] [place] [address] [phone] PCP - General Family Medicine 04/10/25
--- OUTSIDE RECORDS SUMMARY | 2025-08-07 11:11 | XMS_ITS | Encounter Summary ---
Author Organization [employer] Address [address] [facility] 7t [place] [address] Care Team Providers Care Deburr Technician Name Role Phone Sylvia Bains MD Primary Care Provider [phone] Encounter Details Date Type Department Care Team ([facility] Contact Info) Description 10/10/2024 Orders Only [facility] [address] [place], [place] [phone] Magen Disla MD [address] [place] [address] Epigastric pain Social History Tobacco Use Types [...] AM EST documented as of this encounter Functional Status * Audit-C Score Answer Date of Assessment Author 1 10/10/2024 1:09 PM EST Magen Disla MD * Question Answer Date of Assessment Author Q1: How often do you have a drink containing alcohol? Monthly or less 10/10/2024 1:09 PM Geraldo Arriaza MD Q2: How many drinks containing alcohol do you have on a typical day when you are drinking? 1 or 2 10/10/2024 1:09 PM Dustin Arriaza MD Q3: How often do you have six or more drinks on one occasion? Never 10/10/2024 1:09 PM Geraldo Arriaza MD documented as of this encounter Plan of Treatment Not on file documented as of this encounter Visit Diagnoses Diagnosis Epigastric pain Abdominal pain, epigastric documented in this encounter Care Teams Deburr Technician Relationship Specialty Start Date End Date Sylvia Bains MD [address] [place] [address] [phone] PCP - General Family Medicine 04/10/25 documented as of this encounter
--- OUTSIDE RECORDS SUMMARY | 2025-08-07 11:11 | XMS_ITS | Encounter Summary ---
Author Organization [employer] Address 75 [facility] 7t [place] [address] Care Team Providers Care Usability Specialist Name Role Phone Sylvia Bains MD Primary Care Provider Encounter Details Date Type Department Care Team ([facility] Contact Info) Description 01/30/[address] [facility] [address] [place] [address] Gerhard Bell DDS [address] [place] [address] Social History Tobacco Use Types Packs/Day Years [...] on filedocumented in this encounter Care Teams Usability Specialist Relationship Specialty Start Date End Date Sylvia Bains MD [address] [place] [address] PCP - General Family Medicine 04/10/25 documented as of this encounter
--- OUTSIDE RECORDS SUMMARY | 2025-08-07 11:11 | XMS_ITS | Encounter Summary ---
Author Organization [employer] Address [address] [facility] 7t [place] [address] Care Team Providers Care Flower Maker Name Role Phone Sylvia Bains MD Primary Care Provider [phone] Reason for Visit * Reason Comments Med Refill Encounter Details Date Type Department Care Team ([facility] st Contact Info) Description 06/09/2025 Refill [facility] [address] [place] [address] Magen Disla MD [address] [place] [address] Epigastric pain Social History Tobacco Use Types [...] epigastric documented in this encounter Care Teams Flower Maker Relationship Specialty Start Date End Date Sylvia Bains MD [address] [place] [address] PCP - General Family Medicine 04/10/25 documented as of this encounter
--- OUTSIDE RECORDS SUMMARY | 2025-08-07 11:11 | XMS_ITS | Clinical Summary ---
Author Organization [address] [facility] Address [address] [place] [address] Phone Care Team Providers Care Action Finisher Name Role Phone Reva Garrison MD Primary Care Provider [phone] Social History Tobacco Use Types Packs/Day Years Used Date Smoking Tobacco: Never Assessed Sex and Gender Information Value Date Recorded Sex Assigned at Not on file Legal Sex Male 9:21 AM EDT Gender Identity Not on file Sexual Orientation Not on file Plan of Treatment Upcoming Encounters Date Type Department Care Team ([facility] Contact Info) Description 09/07/2025 3:00 PM EDT Consult Orthopedic Surgery [place] [phone] [phone] Tj Paris, ROSARIO [address] [address] Health Maintenance Due Date Last Done Comments DTaP,Tdap,and Td Vaccines (1 - Tdap) 1995 Hepatitis B Vaccines (1 of 3 - 19+ 3-dose series) 1995 Depression Screening 11/30/2024 Cholesterol Screening (Lipid Panel) 06/22/2025 Colorectal Cancer Screening: Colonoscopy 06/22/2025 HIV Screening 06/22/2025 Hepatitis C Screening 06/22/2025 Social Influencers of Health Screening 06/22/2025 COVID-19 Vaccine (1 - 2023-2 5 season) 2025 Influenza Vaccine (#1) 2025 HIB Vaccines Aged Out No longer eligi [...] on patient's age to complete this topic MMR Vaccines Aged Out No longer eligi ble based on patient's age to complete this topic Meningococcal ACWY Vaccine Aged Out N o longer eligible based on patient's age to complete this topic Meningococcal B Vaccine Aged Out No l onger eligible based on patient's age to complete this topic Pneumococcal Vaccine: Pediat rics (0 to 5 Years) and At-Risk Patients (6 to 49 Years) Aged Out No longer eligible b ased on patient's age to complete this topic RSV Immunization Patients Un kev 20 months Aged Out No longer eligible b ased on patient's age to complete this topic Varicella Vaccines Aged Out No longer eligible based on patient's age to complete this topic Insurance [facility] Care Teams Action Finisher Relationship Specialty Start Date End Date Polk, MD Reva [address] [place] [phone] PCP - General Family Medicine 06/21/25
== END 2025-08-07 09:45 | disposition home or self-care (01) ==
LOC: HO.XRAY 09:44
PROVIDERS: PCP General Practice; Visit Provider Internal Medicine
DX: Z13.89 Encounter for screening for other disorder (principal)